=== PATIENT | male | born 1990 | race African-American/Black ===

== ENCOUNTER 2020-08-02 19:01 | Inpatient (IN) | payer OTHER ==
[~2020-08-02] VITALS: Ht 180.3 cm; Wt 71.4 kg
[2020-08-02] MEDS ORDERED: SODIUM CHLORIDE 0.9% 1,000ML IVBOLUS ONE (19:30)
[2020-08-02] MEDS ORDERED: ONDANSETRON 2MG/ML, 2ML IV ONE (19:30)
[2020-08-02] MEDS ORDERED: SODIUM CHLORIDE FLUSH 10ML SYR IVF ONE (19:30)
[2020-08-02] MEDS ORDERED: ONDANSETRON 2MG/ML, 2ML ONE (19:38)
[2020-08-02 19:40] LABS: ALANINE AMINOTRANSFERASE 31 U/L (12-78); ALBUMIN 3.8 g/dL (3.4-5.0); ANION GAP 4 mmol/L (5-15); CALCIUM 9.1 mg/dL (8.5-10.1); CHLORIDE 111 mmol/L (98-107); CREATININE 0.69 mg/dL (0.7-1.3)
[2020-08-02 19:45] LABS: ALKALINE PHOSPHATASE 59 U/L (45-117); BILIRUBIN,TOTAL 8.7 mg/dL (0.2-1.0); TOTAL PROTEIN 7.7 g/dL (6.4-8.2); TROPONIN I < 0.015 ng/mL (0.000-0.045)
[2020-08-02 19:54] LABS: MEAN CORPUSCULAR HEMOGLOBIN 28.7 pg (27.5-34.5); MEAN CORPUSCULAR HGB CONC 35.4 g/dL (33.2-36.2); MEAN PLATELET VOLUME 10.7 fL (7.4-10.4); PLATELET COUNT 332 x10^3/uL (130-400); RED BLOOD COUNT 2.52 x10^6/uL (4.38-5.82); RED CELL DISTRIBUTION WIDTH 28.1 % (9.4-14.8)
[2020-08-02 20:01] LABS: RETICULOCYTE COUNT % 16.05 % (0.5-1.5)
[2020-08-02 20:02] LABS: ABSOLUTE RETICS # 0.398 x10^6/uL (0.5-1.5); MD YES
[2020-08-02 21:05] LABS: EOS#(MANUAL) 0.14 x10^3/uL (0.0-0.4); EOS% (MANUAL) 1 % (1-7); LYMPH#(MANUAL) 3.73 x10^3/uL (1-3.4); LYMPHS% (MANUAL) 27 % (22-44); MONOS% (MANUAL) 8 % (2-9); SEG#(MANUAL) 8.83 x10^3/uL (1.8-6.8); SEGS% (MANUAL) 64 % (42-75)
[2020-08-02 21:14] LABS: ANISOCYTOSIS 2+; HYPOCHROMIA 1+; MICROCYTOSIS 1+
[2020-08-02 21:18] LABS: POLYCHROMASIA 1+
[2020-08-02 21:19] LABS: OVALOCYTES 1+; SICKLE CELLS 2+; TARGET CELLS 1+
[2020-08-02 21:21] LABS: TEAR DROPS 1+
[2020-08-02 21:24] LABS: <PLATELET ESTIMATE> ADEQUATE
[2020-08-02 21:25] LABS: LARGE PLATELETS 1+
[2020-08-02 21:38] VITALS: BP 119/69
[2020-08-02] MEDS ORDERED: PROMETHAZINE 25 MG/ML, 1ML IM PRN (22:00)
[2020-08-02] MEDS ORDERED: ONDANSETRON ODT 4 MG PO PRN (22:00)
[2020-08-02] MEDS ORDERED: hydrALAzine 20 MG/ML, 1ML IVPush PRN (22:00)
[2020-08-02] MEDS ORDERED: BISACODYL 10 MG SUPP PR PRN (22:00)
[2020-08-02] MEDS ORDERED: ACETAMINOPHEN 325 MG TABLET PO PRN (22:00)
[2020-08-02] MEDS ORDERED: OXYcodone IR 5MG TABLET PO PRN (22:00)
[2020-08-02] MEDS ORDERED: POLYETHYLENE GLYCOL 17 GM PACKET PO PRN (22:00)
[2020-08-02] MEDS: SODIUM CHLORIDE 0.9% 1,000 ML IV SCH (23:02)
[2020-08-03 00:52] VITALS: BP 126/74
[2020-08-03] MEDS: SODIUM CHLORIDE 0.9% 1,000 ML IV SCH ×3 (05:40→22:01)
[2020-08-03 06:14] LABS: ALBUMIN 3.4 g/dL (3.4-5.0); CALCIUM 8.8 mg/dL (8.5-10.1); CHLORIDE 111 mmol/L (98-107)
[2020-08-03 06:27] LABS: ALANINE AMINOTRANSFERASE 29 U/L (12-78); ALKALINE PHOSPHATASE 53 U/L (45-117); ANION GAP 4 mmol/L (5-15); BILIRUBIN,TOTAL 7.4 mg/dL (0.2-1.0); CREATININE 0.61 mg/dL (0.7-1.3); HDL CHOLESTEROL (DIRECT) 30 mg/dL (40-60)
[2020-08-03 06:29] LABS: CHOL/HDL RATIO 2.8; HDL CHOL % 36 % (26-37); LDL CHOLESTEROL,CALCULATED 37 mg/dL (54-169); LDL/HDL RATIO 1.2 (0.5-3.0); MEAN CORPUSCULAR HEMOGLOBIN 28.8 pg (27.5-34.5); MEAN CORPUSCULAR HGB CONC 35.6 g/dL (33.2-36.2); MEAN PLATELET VOLUME 10.8 fL (7.4-10.4); PLATELET COUNT 291 x10^3/uL (130-400); RED BLOOD COUNT 2.32 x10^6/uL (4.38-5.82); RED CELL DISTRIBUTION WIDTH 27.6 % (9.4-14.8); TRIGLYCERIDES 79 mg/dL (50-200); VLDL CHOLESTEROL 16 mg/dL (0-25)
[2020-08-03 06:30] LABS: CHOLESTEROL, TOTAL 83 mg/dL (140-239)
[2020-08-03 07:01] LABS: MD YES
[2020-08-03 07:03] LABS: EOS#(MANUAL) 0.76 x10^3/uL (0.0-0.4); EOS% (MANUAL) 6 % (1-7); LYMPH#(MANUAL) 4.03 x10^3/uL (1-3.4); LYMPHS% (MANUAL) 32 % (22-44); MONOS#(MANUAL) 2.02 x10^3/uL (0.3-2.7); MONOS% (MANUAL) 16 % (2-9); SEGS% (MANUAL) 46 % (42-75)
[2020-08-03 07:04] LABS: <PLATELET ESTIMATE> ADEQUATE; ANISOCYTOSIS 2+; HYPOCHROMIA 1+; LARGE PLATELETS 1+; MICROCYTOSIS 1+; OVALOCYTES 1+; POLYCHROMASIA 1+; SICKLE CELLS 2+; TARGET CELLS 1+; TEAR DROPS 1+
[2020-08-03 07:39] VITALS: BP 130/60
[2020-08-03] MEDS: SENNA/DOCUSATE TABLET PO SCH (08:19)
[2020-08-03] MEDS: FOLIC ACID 1 MG TABLET PO SCH (08:19)
[2020-08-03] MEDS: morphine SULFATE 10 MG/ML, 1ML IVPush PRN ×2 (12:27→18:11)
[2020-08-03] MEDS: ONDANSETRON 2MG/ML, 2ML IVPush PRN (13:09)
[2020-08-03 14:02] VITALS: BP 118/67
[2020-08-03 18:54] VITALS: BP 110/67
[2020-08-04 00:19] VITALS: BP 117/64
[2020-08-04] MEDS: ONDANSETRON 2MG/ML, 2ML IVPush PRN (00:31)
[2020-08-04 05:54] LABS: MEAN CORPUSCULAR HEMOGLOBIN 29.8 pg (27.5-34.5); MEAN PLATELET VOLUME 10.7 fL (7.4-10.4); PLATELET COUNT 283 x10^3/uL (130-400); RED BLOOD COUNT 2.15 x10^6/uL (4.38-5.82); RED CELL DISTRIBUTION WIDTH 28.7 % (9.4-14.8)
[2020-08-04 06:05] LABS: MEAN CORPUSCULAR HGB CONC 37.9 g/dL (33.2-36.2)
[2020-08-04 06:35] VITALS: BP 120/78
[2020-08-04 06:40] LABS: MD YES
[2020-08-04 06:41] LABS: EOS#(MANUAL) 0.27 x10^3/uL (0.0-0.4); EOS% (MANUAL) 2 % (1-7)
[2020-08-04 06:42] LABS: LYMPH#(MANUAL) 5.62 x10^3/uL (1-3.4); LYMPHS% (MANUAL) 41 % (22-44); MONOS% (MANUAL) 8 % (2-9); SEG#(MANUAL) 6.71 x10^3/uL (1.8-6.8); SEGS% (MANUAL) 49 % (42-75)
[2020-08-04 06:43] LABS: ANISOCYTOSIS 2+; HYPOCHROMIA 1+; MICROCYTOSIS 1+; POLYCHROMASIA 1+; TARGET CELLS 1+
[2020-08-04 06:44] LABS: OVALOCYTES 1+; SICKLE CELLS 3+; TEAR DROPS 1+
[2020-08-04 06:45] LABS: <PLATELET ESTIMATE> ADEQUATE; LARGE PLATELETS 1+
[2020-08-04] MEDS: SODIUM CHLORIDE 0.9% 1,000 ML IV SCH ×2 (07:52→18:39)
[2020-08-04] MEDS: FOLIC ACID 1 MG TABLET PO SCH (07:52)
[2020-08-04] MEDS: SENNA/DOCUSATE TABLET PO SCH (07:52)
[2020-08-04 11:03] VITALS: BP 116/68
[2020-08-04 12:17] VITALS: BP 114/53
[2020-08-04 12:29] VITALS: BP 113/63
[2020-08-04 15:09] LABS: ALANINE AMINOTRANSFERASE 27 U/L (12-78); ALBUMIN 3.4 g/dL (3.4-5.0); ANION GAP 6 mmol/L (5-15); CALCIUM 8.6 mg/dL (8.5-10.1); CHLORIDE 107 mmol/L (98-107); CREATININE 0.51 mg/dL (0.7-1.3)
[2020-08-04 15:12] LABS: ALKALINE PHOSPHATASE 57 U/L (45-117); BILIRUBIN,TOTAL 8.2 mg/dL (0.2-1.0)
[2020-08-04 18:57] VITALS: BP 113/68
[2020-08-05 00:51] VITALS: BP 113/68
[2020-08-05] MEDS: SODIUM CHLORIDE 0.9% 1,000 ML IV SCH (04:07)
[2020-08-05 05:14] LABS: MEAN CORPUSCULAR HEMOGLOBIN 29.8 pg (27.5-34.5); MEAN PLATELET VOLUME 10.3 fL (7.4-10.4); PLATELET COUNT 299 x10^3/uL (130-400); RED BLOOD COUNT 2.24 x10^6/uL (4.38-5.82); RED CELL DISTRIBUTION WIDTH 29.9 % (9.4-14.8)
[2020-08-05 05:25] LABS: MEAN CORPUSCULAR HGB CONC 37.1 g/dL (33.2-36.2)
[2020-08-05 05:30] LABS: ALBUMIN 3.2 g/dL (3.4-5.0); ANION GAP 3 mmol/L (5-15); CALCIUM 8.6 mg/dL (8.5-10.1); CHLORIDE 109 mmol/L (98-107)
[2020-08-05 05:35] LABS: ALANINE AMINOTRANSFERASE 21 U/L (12-78); ALKALINE PHOSPHATASE 53 U/L (45-117); BILIRUBIN,TOTAL 8.1 mg/dL (0.2-1.0); CREATININE 0.47 mg/dL (0.7-1.3); TOTAL PROTEIN 6.7 g/dL (6.4-8.2)
[2020-08-05 05:52] LABS: MD YES
[2020-08-05 05:53] LABS: BASOS#(MANUAL) 0.13 x10^3/uL (0-0.1); BASOS% (MANUAL) 1 % (0-1); LYMPH#(MANUAL) 3.56 x10^3/uL (1-3.4); LYMPHS% (MANUAL) 27 % (22-44); MONOS#(MANUAL) 1.45 x10^3/uL (0.3-2.7); MONOS% (MANUAL) 11 % (2-9); SEG#(MANUAL) 8.05 x10^3/uL (1.8-6.8); SEGS% (MANUAL) 61 % (42-75)
[2020-08-05 05:54] LABS: <PLATELET ESTIMATE> ADEQUATE; ANISOCYTOSIS 2+; HYPOCHROMIA 1+; LARGE PLATELETS 1+; MICROCYTOSIS 1+; OVALOCYTES 1+; POLYCHROMASIA 1+; SICKLE CELLS 3+; TARGET CELLS 1+; TEAR DROPS 1+
[2020-08-05 07:28] VITALS: BP 113/58
[2020-08-05] MEDS: SENNA/DOCUSATE TABLET PO SCH (08:59)
[2020-08-05] MEDS: FOLIC ACID 1 MG TABLET PO SCH (08:59)
== END 2020-08-05 13:02 | disposition home or self-care (01) | DRG 811 ==
LOC: ED 21:17 → EDIP 21:38 → 3N 21:39 → DCLOUNGE 08-05 12:55
PROVIDERS: ADMIT Internal Medicine; ATTEND Hospitalist
DX: D57.00 Hb-SS disease with crisis, unspecified (principal); E43 Unspecified severe protein-calorie malnutrition; J96.01 Acute respiratory failure with hypoxia; K52.9 Noninfective gastroenteritis and colitis, unspecified; K80.20 Calculus of gallbladder without cholecystitis without obstruction; R74.8 Abnormal levels of other serum enzymes; Z20.822 Contact with and (suspected) exposure to COVID-19; Z79.899 Other long term (current) drug therapy; Z79.891 Long term (current) use of opiate analgesic; Z79.01 Long term (current) use of anticoagulants; Z68.22 Body mass index [BMI] 22.0-22.9, adult
CPT/HCPCS: 36415; 71045; 76700; 80053; 80061; 83605; 83735; 84100; 84443; 84484; 85025; 85045; 93005; 99285; G0378; J2405; J2270; J7030; U0003

== ENCOUNTER 2020-08-14 15:49 | Inpatient (IN) | payer MEDICAID, OTHER ==
[~2020-08-14] VITALS: Ht 172.7 cm; Wt 64.3 kg
--- NOTE | 2020-08-14 16:07 | NUR ---
PT BIB [facility] FOR BODY ACHES/CP/SOB/ABD PAIN. PT WAS SEEN 08/02/2020 FOR SICKLE CELL ANEMIA. PT PLACED ON SUPPL O2 STAFFING BRANCH MANAGER BECAUSE EMS UNABLE TO OBTAIN RA SAT. SUPPL KEPT IN PLACE FOR COMFORT. PT CP RELEIVED STAFFING BRANCH MANAGER BY MEDICATION. PT REPORTS HE STILL FEELS SOB BUT IS ABLE TO SPEAK IN COMPLETE SENTENCES. PT PLACED INTO GOWN, MONITORS IN PLACE. CALL LIGHT WITHIN REACH.
--- NOTE | 2020-08-14 16:36 | NUR ---
PT SITTING ON AYALA ON HIS PHONE, MANDY/KAYLIN. CALL LIGHT WITHIN REACH. NO NEEDS AT THIS TIME.
[2020-08-14] MEDS ORDERED: SODIUM CHLORIDE FLUSH 10ML SYR IVF ONE (17:00)
[2020-08-14] MEDS ORDERED: SODIUM CHLORIDE 0.9% 1,000ML IVBOLUS ONE ×2 (17:00→18:30)
[2020-08-14 17:54] LABS: ALANINE AMINOTRANSFERASE 28 U/L (12-78); ALBUMIN 3.4 g/dL (3.4-5.0); ANION GAP 9 mmol/L (5-15); CALCIUM 8.8 mg/dL (8.5-10.1); CHLORIDE 111 mmol/L (98-107); CREATININE 0.78 mg/dL (0.7-1.3)
[2020-08-14 17:57] LABS: ALKALINE PHOSPHATASE 51 U/L (45-117); BILIRUBIN,TOTAL 9.6 mg/dL (0.2-1.0); TOTAL PROTEIN 6.9 g/dL (6.4-8.2)
[2020-08-14 17:59] LABS: MEAN CORPUSCULAR HEMOGLOBIN 30.1 pg (27.5-34.5); MEAN CORPUSCULAR HGB CONC 36.3 g/dL (33.2-36.2); MEAN PLATELET VOLUME 10.5 fL (7.4-10.4); PLATELET COUNT 295 x10^3/uL (130-400); RED BLOOD COUNT 2.12 x10^6/uL (4.38-5.82); RED CELL DISTRIBUTION WIDTH 27.9 % (9.4-14.8)
--- NOTE | 2020-08-14 18:02 | NUR ---
PT LAYING CALMLY ON MANDY CAI/VSS. PT DENIES PAIN. CALL LIGHT WITHIN REACH. NO NEEDS AT THIS TIME.
[2020-08-14 18:14] LABS: MD YES
[2020-08-14 18:16] LABS: ABSOLUTE RETICS # 0.336 x10^6/uL (0.5-1.5); RETICULOCYTE COUNT % 16.14 % (0.5-1.5)
--- NOTE | 2020-08-14 18:38 | NUR ---
PT STATES HE WILL REFUSE BLOOD TRANSFUSION IF ORDERED- DR SANCHEZ AWARE, 2ND LITER NS ADMINISTERED.
[2020-08-14 19:13] LABS: BAND#(MANUAL) 0.42 x10^3/uL; BANDS%(MANUAL) 2 % (0-7); BASOS#(MANUAL) 0.21 x10^3/uL (0-0.1); BASOS% (MANUAL) 1 % (0-1); LYMPHS% (MANUAL) 12 % (22-44); MONOS#(MANUAL) 2.08 x10^3/uL (0.3-2.7); MONOS% (MANUAL) 10 % (2-9); SEGS% (MANUAL) 75 % (42-75)
[2020-08-14 19:16] LABS: POLYCHROMASIA 1+
[2020-08-14 19:17] LABS: MICROCYTOSIS 1+; OVALOCYTES 1+
--- NOTE | 2020-08-14 19:17 | NUR ---
RECEIVED REPORT FROM LEN HEALY. PT RESTING ON [place]. NADN. EWING.
[2020-08-14 19:18] LABS: HYPOCHROMIA 1+; SICKLE CELLS 2+
[2020-08-14 19:20] LABS: TARGET CELLS 2+; TEAR DROPS 1+
[2020-08-14 19:21] LABS: <PLATELET ESTIMATE> ADEQUATE
[2020-08-14 19:22] LABS: LARGE PLATELETS 1+
--- NOTE | 2020-08-14 19:33 | NUR ---
PT CHART REVIEWED AND PLACED FOR RECHECK.
--- NOTE | 2020-08-14 19:44 | NUR ---
PT EDUCATED ON NEED FOR BLOOD TRANSFUSION AND HGB/HCT LEVEL. PT STATES "I KNOW WHAT'S GOING ON. I JUST WANT TO GO BACK HOME [place] WHERE I KNOW I WON'T HAVE THIS PROBLEM. I'VE NEVER HAD THIS BEFORE. NOT THIS BAD. SO IF I GO BACK HOME AND STILL FEEL BAD THEN I'LL GO TO THE HOSPITAL THERE AND GET A BLOOD TRANSFUSION". PT SIGNED REFUSAL TO PERMIT BLOOD ADMINISTRATION.
[2020-08-14] MEDS ORDERED: morphine SULFATE 10 MG/ML, 1ML IVPush PRN (20:00)
[2020-08-14] MEDS ORDERED: ONDANSETRON 2MG/ML, 2ML IVPush PRN (20:00)
[2020-08-14] MEDS ORDERED: ACETAMINOPHEN 325 MG TABLET PO PRN (20:00)
--- NOTE | 2020-08-14 20:09 | NUR ---
[facility] AT BEDSIDE FOR EVAL.
--- NOTE | 2020-08-14 20:40 | NUR ---
DR. NUNN AT BEDSIDE TALKING W/ PT. PT AGREES TO ADMISSION. WHEN ASKED ABOUT THE BLOOD AFTER EDUCATION BY DR. NUNN PT STATES "I AM THINKING ABOUT IT".
--- NOTE | 2020-08-14 20:45 | NUR ---
REPORT GIVEN TO DHAVAL BOWMAN RN. ALL QUESTIONS ANSWERED. AWAITING PT TRANSPORT.
[2020-08-14 21:09] VITALS: BP 123/82
[2020-08-14 22:03] VITALS: BP 123/82
[2020-08-14] MEDS: LACTATED RINGERS 1,000 ML IV SCH (22:13)
[2020-08-15] VITALS (8 sets, daily range): BP systolic 116–130; BP diastolic 72–88
[2020-08-15 05:03] LABS: MEAN CORPUSCULAR HEMOGLOBIN 30.9 pg (27.5-34.5); MEAN PLATELET VOLUME 10.4 fL (7.4-10.4); PLATELET COUNT 333 x10^3/uL (130-400); RED BLOOD COUNT 2.32 x10^6/uL (4.38-5.82); RED CELL DISTRIBUTION WIDTH 29.9 % (9.4-14.8)
[2020-08-15 05:16] LABS: CALCIUM 8.9 mg/dL (8.5-10.1)
[2020-08-15 05:22] LABS: ALANINE AMINOTRANSFERASE 24 U/L (12-78); ALBUMIN 3.4 g/dL (3.4-5.0); ALKALINE PHOSPHATASE 57 U/L (45-117); BILIRUBIN,TOTAL 6.3 mg/dL (0.2-1.0); CREATININE 0.63 mg/dL (0.7-1.3); TOTAL PROTEIN 7.2 g/dL (6.4-8.2)
[2020-08-15 05:31] LABS: MEAN CORPUSCULAR HGB CONC 37.1 g/dL (33.2-36.2)
[2020-08-15 05:35] LABS: ANION GAP 5 mmol/L (5-15); CHLORIDE 107 mmol/L (98-107)
[2020-08-15] MEDS: LACTATED RINGERS 1,000 ML IV SCH ×2 (05:52→21:52)
[2020-08-15 05:55] LABS: MD YES
[2020-08-15 05:57] LABS: EOS#(MANUAL) 0.32 x10^3/uL (0.0-0.4); EOS% (MANUAL) 2 % (1-7); LYMPH#(MANUAL) 4.67 x10^3/uL (1-3.4); LYMPHS% (MANUAL) 29 % (22-44); MONOS#(MANUAL) 1.45 x10^3/uL (0.3-2.7); MONOS% (MANUAL) 9 % (2-9); SEG#(MANUAL) 9.66 x10^3/uL (1.8-6.8); SEGS% (MANUAL) 60 % (42-75)
[2020-08-15 05:58] LABS: ANISOCYTOSIS 2+; HYPOCHROMIA 1+; MICROCYTOSIS 1+; OVALOCYTES 1+; POLYCHROMASIA 1+; SICKLE CELLS 2+; TARGET CELLS 2+; TEAR DROPS 1+
[2020-08-15 05:59] LABS: <PLATELET ESTIMATE> ADEQUATE; LARGE PLATELETS 1+
[2020-08-15] MEDS: SENNA/DOCUSATE TABLET PO SCH (08:24)
[2020-08-16 01:49] VITALS: BP 138/84
[2020-08-16 07:21] VITALS: BP 121/77
[2020-08-16] MEDS: SENNA/DOCUSATE TABLET PO SCH (09:00)
[2020-08-16] MEDS: LACTATED RINGERS 1,000 ML IV SCH (09:20)
[2020-08-16 13:58] VITALS: BP 126/75
[2020-08-16 19:54] VITALS: BP 120/72
[2020-08-17 00:38] VITALS: BP 128/80
[2020-08-17 07:03] VITALS: BP 105/66
[2020-08-17] MEDS: SENNA/DOCUSATE TABLET PO SCH (08:40)
[2020-08-17 12:23] VITALS: BP 105/69
[2020-08-17 13:51] VITALS: BP 122/85
[2020-08-17 16:04] LABS: MEAN CORPUSCULAR HEMOGLOBIN 30.1 pg (27.5-34.5); MEAN CORPUSCULAR HGB CONC 36.4 g/dL (33.2-36.2); MEAN PLATELET VOLUME 9.9 fL (7.4-10.4); PLATELET COUNT 359 x10^3/uL (130-400); RED CELL DISTRIBUTION WIDTH 23.2 % (9.4-14.8)
[2020-08-17 16:14] LABS: ALBUMIN 3.9 g/dL (3.4-5.0); ANION GAP 3 mmol/L (5-15); CALCIUM 9.5 mg/dL (8.5-10.1); CHLORIDE 104 mmol/L (98-107)
[2020-08-17 16:17] LABS: ALANINE AMINOTRANSFERASE 27 U/L (12-78); ALKALINE PHOSPHATASE 56 U/L (45-117); BILIRUBIN,TOTAL 5.4 mg/dL (0.2-1.0); CREATININE 0.67 mg/dL (0.7-1.3); TOTAL PROTEIN 8.3 g/dL (6.4-8.2)
[2020-08-17 16:26] LABS: MD YES
[2020-08-17 16:32] LABS: ANISOCYTOSIS 2+; BAND#(MANUAL) 0.12 x10^3/uL; BANDS%(MANUAL) 1 % (0-7); BASOS#(MANUAL) 0.12 x10^3/uL (0-0.1); BASOS% (MANUAL) 1 % (0-1); EOS#(MANUAL) 0.12 x10^3/uL (0.0-0.4); EOS% (MANUAL) 1 % (1-7); LYMPH#(MANUAL) 3.57 x10^3/uL (1-3.4); LYMPHS% (MANUAL) 31 % (22-44); MONOS#(MANUAL) 0.81 x10^3/uL (0.3-2.7); MONOS% (MANUAL) 7 % (2-9); SEG#(MANUAL) 6.79 x10^3/uL (1.8-6.8); SEGS% (MANUAL) 59 % (42-75)
[2020-08-17 16:33] LABS: HYPOCHROMIA 1+; MICROCYTOSIS 1+; POLYCHROMASIA 1+
[2020-08-17] MEDS ORDERED: OMNIPAQUE 350 MG/ML, 75ML BOTTLE ONE (16:33)
[2020-08-17 16:34] LABS: OVALOCYTES 1+; SICKLE CELLS 2+
[2020-08-17 16:36] LABS: <PLATELET ESTIMATE> ADEQUATE; LARGE PLATELETS 1+
[2020-08-17 16:37] LABS: TARGET CELLS 2+
[2020-08-17 19:06] VITALS: BP 105/68
[2020-08-18 03:23] VITALS: BP 120/81
[2020-08-18 07:00] VITALS: BP 117/72
[2020-08-18] MEDS: SENNA/DOCUSATE TABLET PO SCH (07:32)
[2020-08-18 12:45] VITALS: BP 117/78
[2020-08-18 18:51] VITALS: BP 122/83
[2020-08-19 02:13] VITALS: BP 127/82
[2020-08-19 07:47] VITALS: BP 115/79
[2020-08-19] MEDS: SENNA/DOCUSATE TABLET PO SCH (07:51)
[2020-08-19 13:33] VITALS: BP 126/72
[2020-08-19 18:42] VITALS: BP 122/84
[2020-08-20 02:06] VITALS: BP 119/74
[2020-08-20 07:28] VITALS: BP 122/71
[2020-08-20] MEDS: SENNA/DOCUSATE TABLET PO SCH (09:00)
[2020-08-20 13:22] VITALS: BP 118/81
== END 2020-08-20 18:10 | disposition home or self-care (01) | DRG 811 ==
LOC: ED 16:19 → EDIP 19:59 → 4WST 20:59 → 4NW 08-17 13:09
PROVIDERS: ADMIT Family Medicine; ATTEND Internal Medicine
DX: D57.01 Hb-SS disease with acute chest syndrome (principal); J96.01 Acute respiratory failure with hypoxia; Z20.822 Contact with and (suspected) exposure to COVID-19; D72.829 Elevated white blood cell count, unspecified; R00.0 Tachycardia, unspecified
CPT/HCPCS: 36415; 36430; 71045; 71275; 80053; 85025; 85045; 86850; 86900; 86923; 93005; 93306; 93356; 96360; 99291; G0378; Q9967; J7030; J7120; P9016; U0003